=== PATIENT | female | born 1990 | race Caucasian/White ===

== ENCOUNTER 2016-09-17 19:54 | Emergency (ER) | payer SELFPAY ==
[~2016-09-17] VITALS: Ht 172.7 cm; Wt 149.0 kg
[2016-09-17 19:56] VITALS: BP 144/89; PULSE 127; RESP 16; TEMP 99.2; O2SAT 98
[2016-09-17] MEDS ORDERED: CYCL1TAB29 PO (22:05)
[2016-09-17] MEDS ORDERED: DICL75TA PO (22:05)
--- NOTE | 2016-09-17 22:09 | PD ---
HPI Chief Complaint: Back/ Neck Pain or Injury Time Seen by Provider: 22:05 Travel History International Travel<30 days: No Contact w/Intl Traveler<30days: No Traveled to known affect area: No History of Present Illness HPI 25-year-old black female presents to emergency department requesting a work note. She states that she had gotten up this morning and was getting ready to go to work when she stretched and felt a muscle in her back. She called into work today. She states that they're very strict on calling in the work and that she needs a note. She also states that she's been having a headache. She denies any recent illness. No fever chills. No visual changes. No numbness, tingling or weakness. PFSH Past Medical History Asthma: Yes Depression: Yes Cancer: No Diabetes: Yes (doctor said she had it a few months ago, but patient is not sure ) Patient Takes Glucophage: No Diminished Hearing: No Hypertension: Yes Psychiatric: No Respiratory: Yes (asthma ) Immunizations Current: Yes Seizures: No Thyroid Disease: No Ulcer: No Tetanus Vaccination: < 5 Years Influenza Vaccination: Yes ?: Not Past Surgical History Surgical History: No Previous Surgery Other Surgery: No Social History Alcohol Use: Yes (occasional ) Tobacco Use: Yes Substance Use: Yes (marijuana ) Allergies-Medications (Allergen,Severity, Reaction): Coded Allergies: No Known Allergies (Verified , 09/17/16) Reported Meds & Prescriptions Reported Meds & Active Scripts Active No Active Prescriptions or Reported Medications Review of Systems Except as stated in HPI: all other systems reviewed are Neg Physical Exam Narrative GENERAL: Well-developed well-nourished obese female in no acute distress. She ambulates in the room without obvious discomfort. SKIN: Warm and dry. HEAD: Atraumatic. Normocephalic. EYES: Pupils equal and round. No scleral icterus. No injection or drainage. ENT: No nasal bleeding or discharge. Mucous membranes pink and moist. NECK: Trachea midline. No JVD. CARDIOVASCULAR: Regular rate and rhythm. No murmur appreciated. RESPIRATORY: No accessory muscle use. Clear to auscultation. Breath sounds equal bilaterally. GASTROINTESTINAL: Abdomen soft, non-tender, nondistended. Hepatic and splenic margins not palpable. MUSCULOSKELETAL: No obvious deformities. No clubbing. No cyanosis. No edema. No central bony tenderness to palpation of dorsal lumbar spine. She has left periscapular myofascial tenderness with mild spasm. NEUROLOGICAL: Awake and alert. No obvious cranial nerve deficits. Motor grossly within normal limits. Normal speech. PSYCHIATRIC: Appropriate mood and affect; insight and judgment normal. Data Data Last Documented VS Vital Signs Date Time Temp Pulse Resp B/P Pulse Ox O2 Delivery O2 Flow Rate FiO2 09/17/16 19:56 99.2 127 16 144/89 98 Room Air Orders Ketorolac Inj (Toradol Inj) (09/17/16 22:15) Orphenadrine Inj (Norflex Inj) (09/17/16 22:15) MDM Medical Decision Making Medical Screen Exam Complete: Yes Emergency Medical Condition: Yes Medical Record Reviewed: Yes Differential Diagnosis MDM: High Differential diagnoses: AAA,Fracture, sprain, strain, HNP, nerve or vascular injury, epidural abscess, pilonidal cyst, pyelonephritis, UTI, nephrolithiasis, ureterolithiasis, cephalgia Narrative Course Patient's given Toradol 60 and Norflex 60 mg IM. This is back strain, cephalgia Diagnosis Primary Impression: Back strain Qualified Code: S39.012A - Back strain, initial encounter Additional Impression: Cephalgia Qualified Code: R51 - Acute nonintractable headache, unspecified headache type Patient Instructions: General Instructions Departure Forms: Work Release Special Instructions: No work 2-3 days. Additional Instructions: Rest. Ice for the next 3 days followed by heat . Flexeril and Voltaren. Follow-up with a primary care doctor in one week. Return to the ER for emergencies. Med/Other Pt SpecificInfo: Prescription(s) given Scripts Cyclobenzaprine (Flexeril)10 Mg Tab10 Mg PO TID #21 TAB Prov:Lisa Nevarez DO 09/17/[address] 75 Mg Tabdr75 Mg PO BID #20 TAB Prov:Lisa Nevarez DO 09/17/16 Disposition: 01 DISCHARGE HOME Condition: Stable Ammon Leal Sep 17, 2016 22:09
[2016-09-17] MEDS ORDERED: KETOROLAC TROMETHAMINE 60 MG/2 ML (IM) VIAL IM ONE (22:15)
[2016-09-17] MEDS ORDERED: ORPHENADRINE INJ 60 MG/2 ML AMP IM ONE (22:15)
== END 2016-09-17 22:27 | disposition home or self-care (01) ==
LOC: NEPB 19:54
DX: S39.012A Strain of muscle, fascia and tendon of lower back, initial encounter (principal); R51 Headache; X50.9XXA Other and unspecified overexertion or strenuous movements or postures, initial encounter
CPT/HCPCS: 96372; 99282; J1885; J2360

== ENCOUNTER 2016-09-22 15:23 | Emergency (ER) | payer SELFPAY ==
[~2016-09-22] VITALS: Ht 172.7 cm; Wt 149.5 kg
[~2016-09-22 15:23] MED LIST: CYCL1TAB29 PO; DICL75TA PO
[2016-09-22 15:29] VITALS: BP 163/90; PULSE 87; RESP 14; TEMP 98.1; O2SAT 98
--- NOTE | 2016-09-22 16:13 | PD ---
HPI Chief Complaint: Medical Clearance Time Seen by Provider: 16:08 Travel History International Travel<30 days: No Contact w/Intl Traveler<30days: No Traveled to known affect area: No History of Present Illness HPI 26-year-old female presents to the emergency department requesting a work note to return back to work. She said she strained her back and was seen here on September 17 and needs a note to return back to work. She was given a work note at her last visit, releasing her from work for 2-3 days, but her work is saying that she needs to be medically evaluated and cleared to return back to work. She has no emergent medical complaints at this time. She denies fever, chills, nausea, vomiting. Denies chest pain, shortness of breath, abdominal pain, change in urine or stool. Denies allergies. History of asthma. No other modifying factors or associated signs and symptoms. History Past Medical Histgory LMP: IRREGULAR Hx Cancer: No Social History Alcohol Use: Yes (occasional ) Tobacco Use: Yes Allergies-Medications (Allergen,Severity, Reaction): Coded Allergies: No Known Allergies (Verified , 09/22/16) Reported Meds & Prescriptions Reported Meds & Active Scripts Active Flexeril (Cyclobenzaprine HCl) 10 Mg Tab 10 Mg PO TID Diclofenac Sodium DR (Diclofenac Sodium) 75 Mg Tabdr 75 Mg PO BID Review of Systems Except as stated in HPI: all other systems reviewed are Neg Physical Exam Narrative GENERAL: Well-nourished, well-developed female patient, in no acute distress SKIN: Warm and dry. HEAD: Atraumatic. Normocephalic. EYES: Pupils equal and round. No scleral icterus. No injection or drainage. ENT: Mucosa pink and moist. Airway patent. NECK: Trachea midline. CARDIOVASCULAR: Regular rate. RESPIRATORY: No accessory muscle use. GASTROINTESTINAL: Obese. MUSCULOSKELETAL: No obvious deformities. No clubbing. No cyanosis. No edema. NEUROLOGICAL: Awake and alert. Oriented 3. No obvious cranial nerve deficits. Motor grossly within normal limits. Normal speech. PSYCHIATRIC: Appropriate mood and affect; insight and judgment normal. Data Data Last Documented VS Vital Signs Date Time Temp Pulse Resp B/P Pulse Ox O2 Delivery O2 Flow Rate FiO2 09/22/16 15:29 98.1 87 14 163/90 98 MDM Medical Screen Exam Complete: Yes Emergency Medical Condition: No Differential Diagnosis Medical clearance, work release, malingering Narrative Course 26-year-old female requesting work release note to return back to work. Vital signs are stable and the patient is stable for outpatient follow-up and treatment. The patient has no urgent or emergent medical complaints. There is no emergent or urgent medical need at this time. I instructed the patient to follow up with their primary care provider. A medical screening exam was performed: At the time of evaluation the presenting medical condition was determined not to be of an emergent nature. The patient was given the option of receiving additional care, but declined. Patient was given options for additional community resources from which to obtain care. The Patient Has Been advised to seek medical attention for their presenting complaint. The patient has been advised to return to the ER at any time if an emergent condition develops. Primary Impression: Encounter for medical screening examination Condition: Stable Martha Bond Sep 22, 2016 16:13
== END 2016-09-22 16:42 | disposition left against medical advice (07) ==
LOC: NEPB 15:23
DX: Z87.39 Personal history of other diseases of the musculoskeletal system and connective tissue (principal); Z72.0 Tobacco use
CPT/HCPCS: 99281